=== PATIENT | male | born 1995 ===

== ENCOUNTER 2017-08-01 13:29 | Emergency (ER) | payer SELFPAY ==
[2017-08-01 13:45] VITALS: BMI 32.8
[2017-08-01] MEDS ORDERED: Amoxicillin-Clav 875-125 mg Tab PO STA (13:57)
[2017-08-01] MEDS ORDERED: Albuterol 0.083% Inhal Sol (2.5 mg/3 mL) UD IH STA (13:57)
[2017-08-01] MEDS ORDERED: Bacitracin 500 Units/gm Oint Foilpak UD TOP ONE (13:58)
--- NOTE | 2017-08-01 14:10 | C.PDOC ---
History Of Present Illness 21 yo male w/PMHx of asthma come in for evaluation of asthma exacerbation gradually developed since yesterday associated with chest tightness, intermittent wheezing, " ran out of my inhaler". Pt also c/o Right earache for past 2 days associated with nasal congestion. Otherwise, pt denies high fever, chills, headache, dizziness, ear discharges, vertigo, drooling, dysphagia, dyspnea, SOB, abd. pain, V/D, back pain, UTi sx. Ambulate to Ed for evaluation, not in any apparent distress. Time Seen by Provider: 08/01/17 13:42 Chief Complaint (Nursing): Medical Clearance History Per: Patient Past Medical History Reviewed: Historical Data, Nursing Documentation, Vital Signs Vital Signs: Last Vital Signs Temp 98.8 F 08/01/17 13:45 Pulse 75 08/01/17 13:45 Resp 18 08/01/17 13:45 BP 117/80 08/01/17 13:45 Pulse Ox 99 08/01/17 13:45 - Medical History PMH: Asthma Family History: States: No Known Family Hx - Social History Hx Alcohol Use: Yes Hx Substance Use: No - Immunization History Hx Tetanus Toxoid Vaccination: Yes Hx Influenza Vaccination: No Hx Pneumococcal Vaccination: Yes Review Of Systems Except As Marked, All Systems Reviewed And Found Negative. Constitutional: Negative for: Fever, Chills ENT: Positive for: Ear Pain, Nose Discharge, Nose Congestion. Negative for: Ear Discharge, Throat Pain, Throat Swelling Cardiovascular: Negative for: Chest Pain, Palpitations Respiratory: Positive for: Cough, Wheezing. Negative for: Shortness of Breath, SOB with Excertion, Sputum Gastrointestinal: Negative for: Nausea, Vomiting, Abdominal Pain Genitourinary: Negative for: Dysuria Musculoskeletal: Negative for: Neck Pain, Back Pain Skin: Negative for: Rash Neurological: Negative for: Weakness, Numbness, Headache, Dizziness Physical Exam - Physical Exam Appears: Well, Non-toxic, No Acute Distress Skin: Normal Color, Warm, Dry, No Rash Head: Normacephalic Eye(s): bilateral: PERRL Ear(s): Left: Normal, Right: TM Erythema Nose: No Flaring, Discharge (scant clear rhinorrhea B/L), No Deformity, No Tenderness Oral Mucosa: Moist, No Drooling Throat: Erythema (mild B/L), No Drooling Neck: Trachea Midline, Supple Cardiovascular: Rhythm Regular, No Murmur Respiratory: No Decreased Breath Sounds, No Accessory Muscle Use, No Stridor, Wheezing (scattered Right base expiratory wheezing) Gastrointestinal/Abdominal: Soft, No Tenderness, No Distention, No Guarding Extremity: No Pedal Edema, No Deformity, No Swelling Neurological/Psych: Oriented x3, Normal Speech ED Course And Treatment O2 Sat by Pulse Oximetry: 99 Pulse Ox Interpretation: Normal Progress Note: On re-evaluation, pt is afebrile, hemodynamicaly stable. Non- toxic. Tolerate Po well in ED. PEAK pre-tx 500. PulsEOx 99% RA. ENT: exam c/ w Right ear otitis media. uvula midline, no edema. NO mastoid tenderness Right. neck: Supple, (-) meningeal sign. Lungs: CTA B/L, BS equal B/L. Abd: benign , (-) guarding, (-) rebound. Neurologicaly intact. Pt advised. ref. to f/u with PMD in 2-3 days for re-eavluation. return to ED if any worsening or new changes. Disposition Counseled Patient/Family Regarding: Diagnosis, Need For Followup, Rx Given - Disposition Referrals: [facility] [Outside] Disposition: HOME/ ROUTINE Disposition Time: 14:17 Condition: STABLE Additional Instructions: Encourage fluids Take medication as prescribed follow up with PMD in 2-3 days for re-evaluation. Return to ED if any worsening or new changes. Prescriptions: Albuterol HFA [Ventolin HFA 90 mcg/actuation (8 g)] 1 puff IH Q6 #1 inhaler Amoxicillin/Clavulanate [Augmentin 875 MG-125 MG] 1 tab PO BID #14 tab Prednisone [Deltasone] 40 mg PO DAILY #6 tablet Instructions: Asthma in Adults, Serous Otitis Media Forms: [employer] (Yakut) - Clinical Impression Clinical Impression: Asthma exacerbation, Otitis media
[2017-08-01] MEDS ORDERED: Amoxicillin-Clav 875-125 mg Tab PO ONE (14:17)
[2017-08-01] MEDS ORDERED: Albuterol 0.083% Inhal Sol (2.5 mg/3 mL) UD ONE (14:17)
[2017-08-01] MEDS ORDERED: Bacitracin 500 Units/gm Oint Foilpak UD ONE (14:18)
[2017-08-01 14:50] VITALS: BP 114/74; PULSE 80; RESP 20; TEMP 98.1; O2SAT 97
== END 2017-08-01 14:50 | disposition home or self-care (01) ==
LOC: C.ER 13:29
DX: J45.901 Unspecified asthma with (acute) exacerbation (principal); H66.91 Otitis media, unspecified, right ear